=== PATIENT | female | born 1975 | race Caucasian/White ===

== ENCOUNTER 2017-11-28 06:45 | Inpatient (IN) | payer OTHER ==
[2017-11-28 07:19] LABS: ADD MAN DIFF? NO
[2017-11-28] MEDS: IV NORMAL SALINE 1000ML BAG 1,000 ML IV ×3 (07:29→20:40)
[2017-11-28] MEDS: ONDANSETRON PF 4 MG/2 ML VIAL. IV ×3 (07:30→18:18)
[2017-11-28 07:31] LABS: ANION GAP 11 (6-14); BLOOD UREA NITROGEN 24 mg/dL (7-20); BUN/CREATININE RATIO 27 (6-20); CALCIUM 8.5 mg/dL (8.5-10.1); CARBON DIOXIDE 24 mmol/L (21-32); CHLORIDE 108 mmol/L (98-107); CREATININE 0.9 mg/dL (0.6-1.0); GLUCOSE 130 mg/dL (70-99); POTASSIUM 3.8 mmol/L (3.5-5.1); SODIUM 143 mmol/L (136-145)
[2017-11-28] MEDS: fentaNYL PF VIAL 100 MCG/2 ML VIAL IV ×3 (07:34→11:15)
[2017-11-28 07:36] LABS: ALBUMIN 3.2 g/dL (3.4-5.0); ALBUMIN/GLOBULIN RATIO 0.9 (1.0-1.7); ALK PHOS 88 U/L (46-116); ALT (SGPT) 29 U/L (14-59); AST (SGOT) 18 U/L (15-37); LIPASE 120 U/L (73-393); TOTAL BILIRUBIN 0.4 mg/dL (0.2-1.0); TOTAL PROTEIN 6.6 g/dL (6.4-8.2)
[2017-11-28 07:47] LABS: BASO % 1 % (0-3); EOS # 0.1 x10^3/uL (0.0-0.7); EOS % 2 % (0-3); HEMATOCRIT 40.6 % (36.0-47.0); HEMOGLOBIN 13.8 g/dL (12.0-15.5); LYMPH # 2.7 x10^3/uL (1.0-4.8); LYMPH % 36 % (24-48); MEAN CORPUSCULAR HEMOGLOBIN 30 pg (25-35); MEAN CORPUSCULAR HGB CONC 34 g/dL (31-37); MEAN CORPUSCULAR VOLUME 89 fL (79-100); MONO # 0.7 x10^3/uL (0.0-1.1); MONO % 10 % (0-9); NEUT # 3.9 x10^3uL (1.8-7.7); NEUT % 52 % (31-73); PLATELET COUNT 340 x10^3/uL (140-400); RED BLOOD COUNT 4.58 x10^6/uL (3.50-5.40); RED CELL DISTRIBUTION WIDTH 13.3 % (11.5-14.5); WHITE BLOOD COUNT 7.5 x10^3/uL (4.0-11.0)
[2017-11-28 07:55] LABS: BILIRUBIN,URINE NEGATIVE (NEG); CLARITY,URINE CLOUDY; COLOR,URINE YELLOW; GLUCOSE,URINE NEGATIVE (NEG); NITRITE,URINE NEGATIVE (NEG); PH,URINE 6.5; PROTEIN,URINE 30 mg/dL (NEG-TRACE)
[2017-11-28 08:11] LABS: BACTERIA,URINE MANY /HPF (0-FEW); RBC,URINE 20-40 /HPF (0-2); WBC,URINE 0 /HPF (0-4)
[2017-11-28 08:12] LABS: SQUAMOUS EPITHELIAL CELL,UR MOD /LPF
[2017-11-28] MEDS ORDERED: MORPHINE SULFATE 2 MG/ML DISP.SYRIN. IV (08:45)
[2017-11-28] MEDS: MORPHINE SULFATE 4 MG/ML DISP.SYRIN. IV ×5 (08:59→18:18)
[2017-11-28] MEDS: KETOROLAC 30 MG/ML INJ. IV ×2 (09:03→20:55)
[2017-11-28] MEDS ORDERED: MORPHINE SULFATE 4 MG/ML DISP.SYRIN. IV (10:00)
[2017-11-28] MEDS ORDERED: ONDANSETRON PF 4 MG/2 ML VIAL. IV (10:00)
[2017-11-28] MEDS ORDERED: DEXTROSE 50% 25 GM / 50ML DISP.SYRIN. IV (14:15)
[2017-11-28] MEDS: PANTOPRAZOLE 40 MG TABLET.DR. PO (14:25)
[2017-11-28] MEDS: LORazepam 1 MG TABLET PO ×2 (19:36→20:52)
[2017-11-28] MEDS ORDERED: NON FORMULARY ITEM (Dextroamphetamine/Amphetamine (Adderall 20 Mg Tablet) 20 MG) PO (20:30)
[2017-11-28] MEDS: ZOLPIDEM 5 MG TABLET. PO (20:52)
[2017-11-28] MEDS ORDERED: DULoxetine HCL 30 MG CAPSULE.DR PO (22:30)
[2017-11-28] MEDS: DULoxetine HCL 30 MG CAPSULE.DR PO (22:40)
[2017-11-29] MEDS: MORPHINE SULFATE 4 MG/ML DISP.SYRIN. IV ×3 (01:34→19:14)
[2017-11-29] MEDS: ONDANSETRON PF 4 MG/2 ML VIAL. IV ×4 (01:35→23:41)
[2017-11-29] MEDS: LORazepam 1 MG TABLET PO ×4 (02:36→21:13)
[2017-11-29] MEDS: KETOROLAC 30 MG/ML INJ. IV ×4 (04:17→23:40)
[2017-11-29] MEDS: IV NORMAL SALINE 1000ML BAG 1,000 ML IV ×2 (05:16→21:15)
[2017-11-29 05:26] LABS: ADD MAN DIFF? NO
[2017-11-29 05:33] LABS: BASO % 1 % (0-3); EOS # 0.1 x10^3/uL (0.0-0.7); EOS % 2 % (0-3); HEMATOCRIT 36.9 % (36.0-47.0); HEMOGLOBIN 12.6 g/dL (12.0-15.5); LYMPH # 1.8 x10^3/uL (1.0-4.8); LYMPH % 40 % (24-48); MEAN CORPUSCULAR HEMOGLOBIN 31 pg (25-35); MEAN CORPUSCULAR HGB CONC 34 g/dL (31-37); MEAN CORPUSCULAR VOLUME 90 fL (79-100); MONO # 0.5 x10^3/uL (0.0-1.1); MONO % 12 % (0-9); NEUT # 2.1 x10^3uL (1.8-7.7); NEUT % 46 % (31-73); PLATELET COUNT 275 x10^3/uL (140-400); RED BLOOD COUNT 4.12 x10^6/uL (3.50-5.40); RED CELL DISTRIBUTION WIDTH 13.3 % (11.5-14.5); WHITE BLOOD COUNT 4.5 x10^3/uL (4.0-11.0)
[2017-11-29 06:02] LABS: ANION GAP 5 (6-14); BLOOD UREA NITROGEN 20 mg/dL (7-20); CALCIUM 8.1 mg/dL (8.5-10.1); CARBON DIOXIDE 26 mmol/L (21-32); CHLORIDE 109 mmol/L (98-107); GFR 61.1; GLUCOSE 129 mg/dL (70-99); POTASSIUM 4.5 mmol/L (3.5-5.1); SODIUM 140 mmol/L (136-145)
[2017-11-29] MEDS: PANTOPRAZOLE 40 MG TABLET.DR. PO (07:30)
[2017-11-29] MEDS: DULoxetine HCL 30 MG CAPSULE.DR PO ×2 (07:53→17:19)
[2017-11-29] MEDS: ESTRADIOL 1 MG TABLET. PO (07:53)
[2017-11-29] MEDS: OXYBUTYNIN CHLORIDE 5 MG TABLET PO ×2 (07:53→21:13)
[2017-11-29] MEDS: TOPIRAMATE 100 MG TABLET. PO (07:53)
[2017-11-29] MEDS: ZOLPIDEM 5 MG TABLET. PO (21:13)
[2017-11-30] MEDS: MORPHINE SULFATE 4 MG/ML DISP.SYRIN. IV ×3 (01:43→07:35)
[2017-11-30] MEDS: ONDANSETRON PF 4 MG/2 ML VIAL. IV ×2 (03:15→07:32)
[2017-11-30] MEDS: IV NORMAL SALINE 1000ML BAG 1,000 ML IV ×3 (03:16→20:02)
[2017-11-30] MEDS: KETOROLAC 30 MG/ML INJ. IV ×2 (06:01→18:24)
[2017-11-30] MEDS ORDERED: LIDOCAINE 2% JELLY 6ML IN APPLICATOR. ×2 (06:29→06:30)
[2017-11-30] MEDS ORDERED: IOHEXOL 300 MG/ML 100ML VIAL. (06:29)
[2017-11-30] MEDS ORDERED: fentaNYL PF VIAL 100 MCG/2 ML VIAL IV (07:00)
[2017-11-30] MEDS ORDERED: MORPHINE SULFATE 4 MG/ML DISP.SYRIN. IV (07:00)
[2017-11-30] MEDS ORDERED: ONDANSETRON PF 4 MG/2 ML VIAL. IV (07:00)
[2017-11-30] MEDS ORDERED: LIDOCAINE 1% PF 2 ML VIAL. ID (07:00)
[2017-11-30] MEDS ORDERED: PROPOFOL 20 ML IV (07:18)
[2017-11-30] MEDS ORDERED: LIDOCAINE 2% PF Vial for OR 5 ML VIAL. (07:18)
[2017-11-30] MEDS ORDERED: ONDANSETRON PF 4 MG/2 ML VIAL. (07:19)
[2017-11-30] MEDS ORDERED: DEXAMETHASONE SOD PHOS 20 MG/5 ML VIAL. (07:19)
[2017-11-30] MEDS ORDERED: SUCCINYLCHOLINE 200 MG/10 ML VIAL. (07:19)
[2017-11-30] MEDS ORDERED: fentaNYL PF VIAL 100 MCG/2 ML VIAL (07:21)
[2017-11-30] MEDS: PANTOPRAZOLE 40 MG TABLET.DR. PO (07:30)
[2017-11-30] MEDS: OXYBUTYNIN CHLORIDE 5 MG TABLET PO ×2 (07:53→20:01)
[2017-11-30] MEDS: ESTRADIOL 1 MG TABLET. PO (07:53)
[2017-11-30] MEDS: TOPIRAMATE 100 MG TABLET. PO (07:53)
[2017-11-30] MEDS ORDERED: MIDAZOLAM HCL/PF 2 MG/2 ML VIAL. (07:56)
[2017-11-30] MEDS ORDERED: ePHEDrine PF IN SALINE 50 MG/5 ML DISP.SYRIN IV (08:19)
[2017-11-30] MEDS: IV RINGERS,LACTATED 1000ML 1,000 ML IV (09:17)
[2017-11-30] MEDS: PROCHLORPERAZINE 10 MG/2 ML VIAL. IV (09:39)
[2017-11-30] MEDS: fentaNYL PF VIAL 100 MCG/2 ML VIAL IV ×2 (09:39→09:57)
[2017-11-30] MEDS: DULoxetine HCL 30 MG CAPSULE.DR PO (16:24)
[2017-11-30] MEDS: TAMSULOSIN 0.4 MG CAP.ER.24H. PO (16:24)
[2017-11-30] MEDS: LORazepam 1 MG TABLET PO ×2 (18:24→23:19)
[2017-11-30] MEDS: ZOLPIDEM 5 MG TABLET. PO (20:01)
[2017-11-30] MEDS: oxyCODONE/APAP 5/325 1 TAB TABLET PO ×2 (20:09→23:19)
[2017-12-01] MEDS: KETOROLAC 30 MG/ML INJ. IV (02:39)
[2017-12-01] MEDS: ONDANSETRON PF 4 MG/2 ML VIAL. IV (02:40)
[2017-12-01] MEDS: PANTOPRAZOLE 40 MG TABLET.DR. PO (05:52)
[2017-12-01] MEDS: MORPHINE SULFATE 4 MG/ML DISP.SYRIN. IV (05:52)
[2017-12-01] MEDS: LORazepam 1 MG TABLET PO (05:52)
[2017-12-01] MEDS: ESTRADIOL 1 MG TABLET. PO (08:27)
[2017-12-01] MEDS: DULoxetine HCL 30 MG CAPSULE.DR PO (08:27)
[2017-12-01] MEDS: TOPIRAMATE 100 MG TABLET. PO (08:27)
[2017-12-01] MEDS: OXYBUTYNIN CHLORIDE 5 MG TABLET PO (08:28)
[2017-12-01] MEDS: TAMSULOSIN 0.4 MG CAP.ER.24H. PO (08:28)
[2017-12-01] MEDS: oxyCODONE/APAP 5/325 1 TAB TABLET PO (08:46)
== END 2017-12-01 13:00 | disposition home or self-care (01) | DRG 669 ==
LOC: ER 06:45 → 4 NORTH 09:52
PROC: 0TC78ZZ Extirpation of Matter from Left Ureter, Via Natural or Artificial Opening Endoscopic (ICD-10-PCS; principal; 2017-11-30 08:00)
DX: N13.2 Hydronephrosis with renal and ureteral calculous obstruction (principal); Z68.41 Body mass index [BMI] 40.0-44.9, adult; N39.0 Urinary tract infection, site not specified; E66.9 Obesity, unspecified; F32.9 Major depressive disorder, single episode, unspecified; F41.9 Anxiety disorder, unspecified; I10 Essential (primary) hypertension; G43.909 Migraine, unspecified, not intractable, without status migrainosus; K21.9 Gastro-esophageal reflux disease without esophagitis; M19.019 Primary osteoarthritis, unspecified shoulder; R73.9 Hyperglycemia, unspecified; Z87.442 Personal history of urinary calculi; Z90.710 Acquired absence of both cervix and uterus; Z88.8 Allergy status to other drugs, medicaments and biological substances; Z82.49 Family history of ischemic heart disease and other diseases of the circulatory system
CPT/HCPCS: 36415; 74176; 76001; 80048; 80053; 81001; 83690; 85025; 87086; 96361; 96365; 96374; 96375; 96376; 99285; 99285-25; C1769; J0330; J0690; J0780; J1100; J1885; J2060; J2250; J2270; J2405; J2704; J3010; J7030; J7120; Q9967

== ENCOUNTER 2017-12-28 13:09 | Emergency (ER) | payer OTHER ==
[2017-12-28] MEDS: IV NORMAL SALINE 1000ML BAG 1,000 ML IV (13:54)
[2017-12-28] MEDS: TAMSULOSIN 0.4 MG CAP.ER.24H. PO (14:00)
[2017-12-28] MEDS: ONDANSETRON PF 4 MG/2 ML VIAL. IV ×2 (14:00→15:23)
[2017-12-28] MEDS: MORPHINE SULFATE 10 MG/ML VIAL. IV ×2 (14:02→15:25)
[2017-12-28 14:04] LABS: ADD MAN DIFF? NO
[2017-12-28 14:09] LABS: BASO % 1 % (0-3); EOS # 0.1 x10^3/uL (0.0-0.7); EOS % 1 % (0-3); HEMATOCRIT 41.9 % (36.0-47.0); HEMOGLOBIN 14.2 g/dL (12.0-15.5); LYMPH # 1.2 x10^3/uL (1.0-4.8); LYMPH % 31 % (24-48); MEAN CORPUSCULAR HEMOGLOBIN 30 pg (25-35); MEAN CORPUSCULAR HGB CONC 34 g/dL (31-37); MEAN CORPUSCULAR VOLUME 89 fL (79-100); MONO # 0.3 x10^3/uL (0.0-1.1); MONO % 9 % (0-9); NEUT # 2.3 x10^3uL (1.8-7.7); NEUT % 58 % (31-73); PLATELET COUNT 293 x10^3/uL (140-400); RED BLOOD COUNT 4.69 x10^6/uL (3.50-5.40); RED CELL DISTRIBUTION WIDTH 13.2 % (11.5-14.5)
[2017-12-28 14:16] LABS: ANION GAP 9 (6-14); BLOOD UREA NITROGEN 21 mg/dL (7-20); BUN/CREATININE RATIO 18 (6-20); CALCIUM 8.5 mg/dL (8.5-10.1); CARBON DIOXIDE 24 mmol/L (21-32); CHLORIDE 104 mmol/L (98-107); CREATININE 1.2 mg/dL (0.6-1.0); GFR 49.5; GLUCOSE 107 mg/dL (70-99); POTASSIUM 4.4 mmol/L (3.5-5.1); SODIUM 137 mmol/L (136-145)
[2017-12-28 14:22] LABS: ALBUMIN 3.4 g/dL (3.4-5.0); ALK PHOS 83 U/L (46-116); ALT (SGPT) 28 U/L (14-59); AST (SGOT) 14 U/L (15-37); TOTAL BILIRUBIN 0.3 mg/dL (0.2-1.0); TOTAL PROTEIN 6.7 g/dL (6.4-8.2)
[2017-12-28 14:47] LABS: BILIRUBIN,URINE NEGATIVE (NEG); CLARITY,URINE CLEAR; COLOR,URINE YELLOW; GLUCOSE,URINE NEGATIVE (NEG); NITRITE,URINE NEGATIVE (NEG); PROTEIN,URINE NEGATIVE (NEG-TRACE); UROBILINOGEN,URINE 0.2 mg/dL (0.2 mg/dL)
[2017-12-28 14:49] LABS: BACTERIA,URINE MODERATE /HPF (0-FEW); RBC,URINE 0 /HPF (0-2); SQUAMOUS EPITHELIAL CELL,UR MANY /LPF; WBC,URINE RARE /HPF (0-4)
== END 2017-12-28 16:16 | disposition home or self-care (01) ==
LOC: ER 13:09
DX: R10.32 Left lower quadrant pain (principal); R11.0 Nausea; I10 Essential (primary) hypertension; G43.909 Migraine, unspecified, not intractable, without status migrainosus; Z90.710 Acquired absence of both cervix and uterus; Z87.442 Personal history of urinary calculi; Z88.1 Allergy status to other antibiotic agents
CPT/HCPCS: 36415; 74176; 80053; 81001; 85025; 87086; 96374; 96375; 96376; 99285-25; J2270; J2405; J7030

== ENCOUNTER 2018-05-13 09:52 | Emergency (ER) | payer OTHER ==
[~2018-05-13] VITALS: Ht 165.1 cm; Wt 79.4 kg
[~2018-05-13 09:52] MED LIST: CEPH-264 PO; DEXT20TA2 PO; DICL50TA4 PO; DOCU-109 PO; DULO30CA2 PO; DULO60CA6 PO; ESTR2TAB PO; HYDR25TA PO; METF500T16 PO; METO50TA6 PO; ONDA4TAB10 SL; OXYB5TAB PO; OXYC1TAB7 PO; TIZA4TAB PO; TOPI100T8 PO; ZOLP10TA PO
[2018-05-13] MEDS ORDERED: MORPHINE SULFATE 4 MG/ML VIAL. IV ONE (10:15)
[2018-05-13] MEDS ORDERED: TAMSULOSIN 0.4 MG CAP.ER.24H. PO ONE (10:15)
[2018-05-13] MEDS ORDERED: ONDANSETRON PF 4 MG/2 ML VIAL. IV ONE (10:15)
--- NOTE | 2018-05-13 10:28 | PHYS DOC ---
Past Medical History Past Medical History: High Cholesterol, Kidney Stone, Migraines Additional Past Medical Histor: heart "goes to fast", MIGRAINES Past Surgical History: Hysterectomy, Other Additional Past Surgical Histo: KIDNEY STONES Alcohol Use: Occasionally Drug Use: None Adult General Chief Complaint Chief Complaint: FLANK PAIN HPI HPI Patient is a 43 year old female with history of kidney stones, high cholesterol , who presents today complaining of 10 out of 10 right flank pain radiating to the right side of the abdomen that began yesterday. Patient states this pain feels similar to the last time she had a kidney stone. Patient denies any vomiting but states she is nauseated. Denies any fever. PCP Dr. Ruiz Urologist Dr. Vela Review of Systems Review of Systems Constitutional: Denies fever or chills [] Eyes: Denies change in visual acuity, redness, or eye pain [] HENT: Denies nasal congestion or sore throat [] Respiratory: Denies cough or shortness of breath [] Cardiovascular: No additional information not addressed in HPI [] GI: Denies abdominal pain, nausea, vomiting, bloody stools or diarrhea [] : Reports right flank pain. Denies dysuria or hematuria [] Musculoskeletal: Denies back pain or joint pain [] Integument: Denies rash or skin lesions [] Neurologic: Denies headache, focal weakness or sensory changes [] All other systems were reviewed and found to be within normal limits, except as documented in this note. Current Medications Current Medications Current Medications Medications (Trade) Dose Ordered [facility] Start Time Stop Time Status Last Admin Dose Admin Ketorolac Tromethamine (Toradol 30mg Vial) 30 mg 1X ONCE 05/13/18 12:00 05/13/18 12:01 DC 05/13/18 12:09 30 MG Morphine Sulfate (Morphine Sulfate) 4 mg 1X ONCE 05/13/18 10:15 05/13/18 10:25 DC 05/13/18 10:15 4 MG Ondansetron HCl (Zofran) 4 mg 1X ONCE 05/13/18 10:15 05/13/18 10:25 DC 05/13/18 10:50 4 MG Tamsulosin HCl (Flomax) 0.4 mg 1X ONCE 05/13/18 10:15 05/13/18 10:25 DC 05/13/18 10:50 0.4 MG Allergies Allergies Allergies Coded Allergies Type Severity Reaction Last Updated Verified levofloxacin Allergy Severe 05/23/14 Yes Physical Exam Physical Exam Constitutional: Well developed, well nourished, no acute distress, non-toxic appearance. [] HENT: Normocephalic, atraumatic, bilateral external ears normal, oropharynx moist, no oral exudates, nose normal. [] Eyes: PERRLA, EOMI, conjunctiva normal, no discharge. [] Neck: Normal range of motion, no tenderness, supple, no stridor. [] Cardiovascular:Heart rate regular rhythm, no murmur [] Lungs & Thorax: Bilateral breath sounds clear to auscultation [] Abdomen: Bowel sounds normal, soft, no tenderness, no masses, no pulsatile masses. [] Skin: Warm, dry, no erythema, no rash. [] Back: No tenderness, no CVA tenderness. [] Extremities: No tenderness, no cyanosis, no clubbing, ROM intact, no edema. [] Neurologic: Alert and oriented X 3, normal motor function, normal sensory function, no focal deficits noted. [] Psychologic: Affect normal, judgement normal, mood normal. [] Current Patient Data Vital Signs Vital Signs Date Time Temp Pulse Resp B/P (MAP) Pulse Ox O2 Delivery O2 Flow Rate FiO2 05/13/18 13:00 75 112/64 (80) 97 Room Air 05/13/18 10:15 16 05/13/18 10:07 97.7 97.7 Lab Values Laboratory Tests Test 05/13/18 10:00 05/13/18 10:07 05/13/18 10:45 05/13/18 13:10 Urine Opiates Screen Neg (NEG) Urine Methadone Screen Neg (NEG) Urine Barbiturates Neg (NEG) Urine Phencyclidine Screen Neg (NEG) Urine Amphetamine/Methamphetamine Neg (NEG) Urine Benzodiazepines Screen Pos (NEG) Urine Cocaine Screen Neg (NEG) Urine Cannabinoids Screen Neg (NEG) Urine Ethyl Alcohol Neg (NEG) POC Urine HCG, Qualitative Hcg negative (Negative) White Blood Count 3.6 x10^3/uL (4.0-11.0) L Red Blood Count 4.90 x10^6/uL (3.50-5.40) Hemoglobin 14.7 g/dL (12.0-15.5) Hematocrit 42.8 % (36.0-47.0) Mean Corpuscular Volume 87 fL (79-100) Mean Corpuscular Hemoglobin 30 pg (25-35) Mean Corpuscular Hemoglobin Concent 34 g/dL (31-37) Red Cell Distribution Width 11.8 % (11.5-14.5) Platelet Count 334 x10^3/uL (140-400) Neutrophils (%) (Auto) 46 % (31-73) Lymphocytes (%) (Auto) 42 % (24-48) Monocytes (%) (Auto) 9 % (0-9) Eosinophils (%) (Auto) 2 % (0-3) Basophils (%) (Auto) 1 % (0-3) Neutrophils # (Auto) 1.7 x10^3uL (1.8-7.7) L Lymphocytes # (Auto) 1.5 x10^3/uL (1.0-4.8) Monocytes # (Auto) 0.3 x10^3/uL (0.0-1.1) Eosinophils # (Auto) 0.1 x10^3/uL (0.0-0.7) Basophils # (Auto) 0.0 x10^3/uL (0.0-0.2) Sodium Level 135 mmol/L (136-145) L Potassium Level 4.1 mmol/L (3.5-5.1) Chloride Level 102 mmol/L (98-107) Carbon Dioxide Level 19 mmol/L (21-32) L Anion Gap 14 (6-14) Blood Urea Nitrogen 19 mg/dL (7-20) Creatinine 1.0 mg/dL (0.6-1.0) Estimated GFR (Cockcroft-Gault) 60.8 BUN/Creatinine Ratio 19 (6-20) Glucose Level 112 mg/dL (70-99) H Calcium Level 8.3 mg/dL (8.5-10.1) L Total Bilirubin 0.2 mg/dL (0.2-1.0) Aspartate Amino Transferase (AST) 42 U/L (15-37) H Alanine Aminotransferase (ALT) 95 U/L (14-59) H Alkaline Phosphatase 86 U/L (46-116) Total Protein 6.6 g/dL (6.4-8.2) Albumin 3.1 g/dL (3.4-5.0) L Albumin/Globulin Ratio 0.9 (1.0-1.7) L Urine Collection Type Unknown Urine Color Yellow Urine Clarity Clear Urine pH 6.5 Urine Specific [place] 1.015 Urine Protein Negative mg/dL (NEG-TRACE) Urine Glucose (UA) Negative mg/dL (NEG) Urine Ketones (Stick) Negative mg/dL (NEG) Urine Blood Negative (NEG) Urine Nitrite Negative (NEG) Urine Bilirubin Negative (NEG) Urine Urobilinogen Dipstick 0.2 mg/dL (0.2 mg/dL) Urine Leukocyte Esterase Negative (NEG) Urine RBC Occ /HPF (0-2) Urine WBC 1-4 /HPF (0-4) Urine Squamous Epithelial Cells Mod /LPF Urine Bacteria Few /HPF (0-FEW) Urine Mucus Slight /LPF Laboratory Tests 05/13/18 10:45 Laboratory Tests 05/13/18 10:45 EKG EKG [] Radiology/Procedures Radiology/Procedures []PROCEDURE: CT ABDOMEN PELVIS WO CONTRAST CT Abdomen and Pelvis without contrast History: Right flank pain Technique: Noncontrast CT imaging was performed of the abdomen and pelvis. Multiplanar images are reviewed. Exposure: One or more of the following individualized dose reduction techniques were utilized for this examination: 1. Automated exposure control 2. Adjustment of the mA and/or kV according to patient size 3. Use of iterative reconstruction technique. Comparison: December 28, 2017 Findings: Previously there were more numerous left renal calculi, 3 remaining inferior left renal calculi with the largest about 3 mm. There is again small about 2 mm inferior right renal calculus. There is no hydronephrosis of either kidney. No ureteral calculus is identified. Accurate evaluation of abdominal visceral organs is limited without intravenous contrast. There is no obvious abnormality of the spleen, liver, or pancreas. There is no adrenal nodularity. Accurate evaluation of bowel is limited without oral contrast. There is retained stool throughout the colon. Normal appendix is visualized. There is no significant free air, free fluid, bowel dilatation. Impression: 1. There are persistent bilateral renal calculi although less numerous on the left compared with December 2017 exam, no hydronephrosis or ureteral calculus. 2. There is no CT evidence of acute appendicitis. There is retained stool throughout the colon. Electronically signed by: Trudi Arias MD (05/13/2018 10:40 AM) [id number] DICTATED and SIGNED BY: TRUDI ARIAS MD DATE: 05/13/18 1034 Course & Med Decision Making Course & Med Decision Making Pertinent Labs and Imaging studies reviewed. (See chart for details) This is a 43-year-old female patient presenting to the ED today with right flank pain. Has history of kidney stones. Also complaining of nausea with no vomiting. Urine analysis is negative for infection. Labs are negative for any acute findings. CT of the abdomen and pelvic to rule out kidney stone was noted for persistent bilateral renal calculi. She was also noted for constipation. Patient is in no distress. Will be discharged to home. Instructed to follow-up with her own PCP in the course of this week as well as urologist. Scott Disclaimer Scott Disclaimer This electronic medical record was generated, in whole or in part, using a voice recognition dictation system. Departure Departure Impression: Primary Impression: Kidney stone Additional Impression: Constipation Disposition: 01 HOME, SELF-CARE Condition: STABLE Referrals: SOFIYA DALAL (PCP) follow up next week Patient Instructions: Constipation, Adult, Kidney Stones, [id number] Additional Instructions: You were evaluated in the emergency room for flank pain, your urine has no infection you were noted to have chronic bilateral renal calculi/kidney stones. Continue following up with the urologist. Take [id number] pain relievers as needed. You also noted to be constipated. Consider taking magnesium citrate today and MiraLAX every day. Scripts Ondansetron (ZOFRAN ODT) 4 Mg Tab.rapdis 1 TAB SL Q8HRS, #15 TAB Prov: ALISON ROBLES APRN 05/13/18 Problem Qualifiers Additional Impression: Constipation Constipation type: unspecified constipation type Qualified Codes: K59.00 - Constipation, unspecified JENNYALISON MONSON [employer] May 13, 2018 10:28
[2018-05-13 10:33] LABS: BARBITURATES NEG (NEG); BENZODIAZEPINES POS (NEG); CANNABINOIDS NEG (NEG); COCAINE NEG (NEG); METHADONE NEG (NEG); OPIATES NEG (NEG); PHENCYCLIDINE NEG (NEG)
[2018-05-13 10:34] LABS: AMPHETAMINE/METHAMPHETAMINE NEG (NEG)
--- NOTE | 2018-05-13 10:43 | RAD ---
CT Abdomen and Pelvis without contrast History: Right flank pain Technique: Noncontrast CT imaging was performed of the abdomen and pelvis. Multiplanar images are reviewed. Exposure: One or more of the following individualized dose reduction techniques were utilized for this examination: 1. Automated exposure control 2. Adjustment of the mA and/or kV according to patient size 3. Use of iterative reconstruction technique. Comparison: December 28, 2017 Findings: Previously there were more numerous left renal calculi, 3 remaining inferior left renal calculi with the largest about 3 mm. There is again small about 2 mm inferior right renal calculus. There is no hydronephrosis of either kidney. No ureteral calculus is identified. Accurate evaluation of abdominal visceral organs is limited without intravenous contrast. There is no obvious abnormality of the spleen, liver, or pancreas. There is no adrenal nodularity. Accurate evaluation of bowel is limited without oral contrast. There is retained stool throughout the colon. Normal appendix is visualized. There is no significant free air, free fluid, bowel dilatation. Impression: 1. There are persistent bilateral renal calculi although less numerous on the left compared with December 2017 exam, no hydronephrosis or ureteral calculus. 2. There is no CT evidence of acute appendicitis. There is retained stool throughout the colon. Electronically signed by: Miguel Ángel Hanley MD (05/13/2018 10:40 AM) [facility]
[2018-05-13 11:04] LABS: CALCIUM 8.3 mg/dL (8.5-10.1); GFR 60.8; POTASSIUM 4.1 mmol/L (3.5-5.1)
[2018-05-13 11:12] LABS: ALBUMIN 3.1 g/dL (3.4-5.0); ALBUMIN/GLOBULIN RATIO 0.9 (1.0-1.7); TOTAL BILIRUBIN 0.2 mg/dL (0.2-1.0); TOTAL PROTEIN 6.6 g/dL (6.4-8.2)
[2018-05-13 11:15] LABS: BASO % 1 % (0-3); EOS # 0.1 x10^3/uL (0.0-0.7); EOS % 2 % (0-3); HEMATOCRIT 42.8 % (36.0-47.0); HEMOGLOBIN 14.7 g/dL (12.0-15.5); LYMPH # 1.5 x10^3/uL (1.0-4.8); LYMPH % 42 % (24-48); MEAN CORPUSCULAR HEMOGLOBIN 30 pg (25-35); MEAN CORPUSCULAR HGB CONC 34 g/dL (31-37); MEAN CORPUSCULAR VOLUME 87 fL (79-100); MONO # 0.3 x10^3/uL (0.0-1.1); MONO % 9 % (0-9); NEUT # 1.7 x10^3uL (1.8-7.7); NEUT % 46 % (31-73); PLATELET COUNT 334 x10^3/uL (140-400); RED CELL DISTRIBUTION WIDTH 11.8 % (11.5-14.5); WHITE BLOOD COUNT 3.6 x10^3/uL (4.0-11.0)
[2018-05-13] MEDS ORDERED: KETOROLAC 30 MG/ML VIAL. IV ONE (12:00)
[2018-05-13 13:43] LABS: BILIRUBIN,URINE NEGATIVE (NEG); CLARITY,URINE CLEAR; COLOR,URINE YELLOW; NITRITE,URINE NEGATIVE (NEG); PH,URINE 6.5; PROTEIN,URINE NEGATIVE (NEG-TRACE); UROBILINOGEN,URINE 0.2 mg/dL (0.2 mg/dL)
[2018-05-13 14:05] LABS: BACTERIA,URINE FEW /HPF (0-FEW); RBC,URINE OCC /HPF (0-2); SQUAMOUS EPITHELIAL CELL,UR MOD /LPF
[2018-05-13 14:10] VITALS: BP 134/66
[2018-05-13] MEDS ORDERED: ONDA4TAB10 SL (14:26)
[2018-05-13] MEDS ORDERED: IBUPROFEN 600 MG TABLET. PO ONE (14:45)
== END 2018-05-13 14:43 | disposition home or self-care (01) ==
LOC: ER 09:52
DX: N20.0 Calculus of kidney (principal); K59.00 Constipation, unspecified; E78.00 Pure hypercholesterolemia, unspecified; G43.909 Migraine, unspecified, not intractable, without status migrainosus; Z87.442 Personal history of urinary calculi; Z90.710 Acquired absence of both cervix and uterus; Z88.1 Allergy status to other antibiotic agents
CPT/HCPCS: 36415; 74176; 80053; 80307; 81001; 81025; 85025; 96374; 96375; 99285; J1885; J2270; J2405

== ENCOUNTER 2019-06-02 07:28 | Emergency (ER) | payer BC, OTHER ==
[~2019-06-02] VITALS: Ht 175.3 cm; Wt 99.8 kg
[~2019-06-02 07:28] MED LIST changes: -OXYB5TAB PO; +OXYB5TAB3 PO; -TIZA4TAB PO; +TIZA4TAB2 PO
[2019-06-02 07:30] VITALS: BP 125/73
[2019-06-02] MEDS ORDERED: IV NORMAL SALINE 1000ML BAG 1,000 ML IV SCH (07:44)
[2019-06-02] MEDS ORDERED: KETOROLAC 30 MG/ML VIAL. IV ONE (07:45)
[2019-06-02] MEDS ORDERED: ONDANSETRON PF 4 MG/2 ML VIAL. IV ONE (07:45)
--- NOTE | 2019-06-02 07:48 | PHYS DOC ---
Past Medical History Past Medical History: High Cholesterol, Kidney Stone, Migraines Additional Past Medical Histor: heart "goes to fast", MIGRAINES Past Surgical History: Hysterectomy, Other Additional Past Surgical Histo: KIDNEY STONES Alcohol Use: Occasionally Drug Use: None Adult General Chief Complaint Chief Complaint: FLANK PAIN HPI HPI Patient is a 44 year old with history of dyslipidemia, migraine headache, kidney stones who presents with complaint of flank pain. Patient coming of sudden onset of right flank pain that 5 AM as a constant sharp pain without radiation. Patient complaining of severe nausea without vomiting and states her urine looks dark. Patient states she did not drink enough liquids for the last few days. Patient denies vomiting, diarrhea and constipation, , fever and chills, chest pain and shortness of breath. Patient states she had the same problem with her previous episodes of kidney stones. Review of Systems Review of Systems Constitutional: Denies fever or chills [] Eyes: Denies change in visual acuity, redness, or eye pain [] HENT: Denies nasal congestion or sore throat [] Respiratory: Denies cough or shortness of breath [] Cardiovascular: No additional information not addressed in HPI [] GI: Denies abdominal pain, vomiting, bloody stools or diarrhea, reports nausea [] : Denies dysuria or hematuria [] Musculoskeletal: Denies back pain or joint pain [] Integument: Denies rash or skin lesions [] Neurologic: Denies headache, focal weakness or sensory changes [] Endocrine: Denies polyuria or polydipsia [] All other systems were reviewed and found to be within normal limits, except as documented in this note. Current Medications Current Medications Current Medications Medications (Trade) Dose Ordered Sig/Tony Start Time Stop Time Status Last Admin Dose Admin Fentanyl Citrate (Fentanyl 2ml Vial) 50 mcg 1X ONCE 06/02/19 09:00 06/02/19 09:04 DC 06/02/19 09:15 50 MCG Ketorolac Tromethamine (Toradol 30mg Vial) 30 mg 1X ONCE 06/02/19 07:45 06/02/19 07:48 DC 06/02/19 07:59 30 MG Ondansetron HCl (Zofran) 4 mg 1X ONCE 06/02/19 07:45 06/02/19 07:48 DC 06/02/19 07:59 4 MG Sodium Chloride 1,000 ml @ 1,000 mls/hr Q1H 12/4/19 07:44 06/02/19 08:43 DC 06/02/19 07:59 1,000 MLS/HR Allergies Allergies Allergies Coded Allergies Type Severity Reaction Last Updated Verified levofloxacin Allergy Severe 05/23/14 Yes Physical Exam Physical Exam Constitutional: Well developed, well nourished, moderate distress, non-toxic appearance. [] HENT: Normocephalic, atraumatic. Eyes: PERRLA, EOMI, conjunctiva normal, no discharge. [] Neck: Normal range of motion, no tenderness, supple, no stridor. [] Cardiovascular:Heart rate regular rhythm, no murmur [] Lungs & Thorax: Bilateral breath sounds clear to auscultation [] Abdomen: Bowel sounds normal, soft, no tenderness, no masses, no pulsatile masses. [] Skin: Warm, dry, no erythema, no rash. [] Back: No tenderness, no CVA tenderness. [] Extremities: No tenderness, no cyanosis, no clubbing, ROM intact, no edema. [] Neurologic: Alert and oriented X 3, no focal deficits noted. [] Psychologic: Affect normal, judgement normal, mood normal. [] Current Patient Data Vital Signs Vital Signs Date Time Temp Pulse Resp B/P (MAP) Pulse Ox O2 Delivery O2 Flow Rate FiO2 06/02/19 09:15 18 97 Room Air 06/02/19 07:30 98.4 75 125/73 (90) 98.4 Lab Values Laboratory Tests Test 06/02/19 07:30 06/02/19 08:00 Urine Collection Type Unknown Urine Color Yellow Urine Clarity Cloudy Urine pH 7.0 Urine Specific [place] 1.025 Urine Protein Negative mg/dL (NEG-TRACE) Urine Glucose (UA) Negative mg/dL (NEG) Urine Ketones (Stick) Negative mg/dL (NEG) Urine Blood Negative (NEG) Urine Nitrite Negative (NEG) Urine Bilirubin Negative (NEG) Urine Urobilinogen Dipstick 1.0 mg/dL (0.2 mg/dL) Urine Leukocyte Esterase Moderate (NEG) Urine RBC 0 /HPF (0-2) Urine WBC 5-10 /HPF (0-4) Urine Squamous Epithelial Cells Mod /LPF Urine Bacteria Moderate /HPF (0-FEW) Urine Mucus Mod /LPF White Blood Count 3.6 x10^3/uL (4.0-11.0) L Red Blood Count 4.63 x10^6/uL (3.50-5.40) Hemoglobin 13.6 g/dL (12.0-15.5) Hematocrit 40.4 % (36.0-47.0) Mean Corpuscular Volume 87 fL (79-100) Mean Corpuscular Hemoglobin 29 pg (25-35) Mean Corpuscular Hemoglobin Concent 34 g/dL (31-37) Red Cell Distribution Width 12.1 % (11.5-14.5) Platelet Count 295 x10^3/uL (140-400) Neutrophils (%) (Auto) 55 % (31-73) Lymphocytes (%) (Auto) 33 % (24-48) Monocytes (%) (Auto) 9 % (0-9) Eosinophils (%) (Auto) 2 % (0-3) Basophils (%) (Auto) 1 % (0-3) Neutrophils # (Auto) 2.0 x10^3/uL (1.8-7.7) Lymphocytes # (Auto) 1.2 x10^3/uL (1.0-4.8) Monocytes # (Auto) 0.3 x10^3/uL (0.0-1.1) Eosinophils # (Auto) 0.1 x10^3/uL (0.0-0.7) Basophils # (Auto) 0.0 x10^3/uL (0.0-0.2) Sodium Level 141 mmol/L (136-145) Potassium Level 4.0 mmol/L (3.5-5.1) Chloride Level 104 mmol/L (98-107) Carbon Dioxide Level 29 mmol/L (21-32) Anion Gap 8 (6-14) Blood Urea Nitrogen 26 mg/dL (7-20) H Creatinine 0.9 mg/dL (0.6-1.0) Estimated GFR (Cockcroft-Gault) 68.3 BUN/Creatinine Ratio 29 (6-20) H Glucose Level 110 mg/dL (70-99) H Calcium Level 8.7 mg/dL (8.5-10.1) Total Bilirubin 0.6 mg/dL (0.2-1.0) Aspartate Amino Transferase (AST) 11 U/L (15-37) L Alanine Aminotransferase (ALT) 16 U/L (14-59) Alkaline Phosphatase 93 U/L (46-116) Total Protein 6.3 g/dL (6.4-8.2) L Albumin 3.2 g/dL (3.4-5.0) L Albumin/Globulin Ratio 1.0 (1.0-1.7) Laboratory Tests 06/02/19 08:00 Laboratory Tests 06/02/19 08:00 EKG EKG [] Radiology/Procedures Radiology/Procedures [][facility] [address] [place] [address] IMAGING REPORT Signed PATIENT: KELLI CHRISTIANSON ACCOUNT: [id number] : 1975 LOCATION: ER AGE: 44 SEX: F EXAM STATUS: REG ER ORD. PHYSICIAN: AVANI DE LA GARZA MD REASON: right flank pain PROCEDURE: CT ABDOMEN PELVIS WO CONTRAST CT abdomen pelvis without contrast dated 06/02/2019. Comparison made to 05/13/2018. Clinical indication: Right flank pain. TECHNIQUE: Contiguous axial imaging the pelvis performed without the administration of IV or oral contrast. One or more of the following individualized dose reduction techniques were utilized for this examination: 1. Automated exposure control 2. Adjustment of the mA and/or kV according to patient size 3. Use of iterative reconstruction technique. FINDINGS: Limited images of lung bases show minimal patchy left basilar opacity, likely atelectasis. Heart size within normal limits. No pleural or pericardial effusion. Solid abdominal viscera not well evaluated in the absence of contrast material. Rounded area of low density in the left lobe liver near the falciform ligament on image 49 measures about 2.8 cm in size, unchanged from prior exam. Liver is otherwise homogeneous. No biliary ductal dilatation. Gallbladder unremarkable. Spleen is normal in size. Pancreas, adrenal glands unremarkable. There are small calcific stones along the calyceal margins of each kidney measuring about 4 mm in size or less. These have increased in size and number from prior study. No calculus identified along the course of either ureter. No hydronephrosis. Unopacified GI tract normal in caliber and contour. No focal bowel wall thickening. No inflammatory stranding in the mesentery. No ascites or lymphadenopathy. Abdominal aorta normal in caliber. Appendix normal in caliber. Images of pelvis show nondistended urinary bladder. Uterus surgically absent. No free fluid or pelvic lymphadenopathy. Bone windows show no acute findings. Mild multilevel spondylosis. IMPRESSION: 1. Bilateral nephrolithiasis, nonobstructive. 2. Indeterminate low-density lesion within left lobe liver, unchanged from prior study. 3. Status post hysterectomy. 4. Normal appendix. Electronically signed by: Cam Padron MD (06/02/2019 9:28 AM) [id number] DICTATED and SIGNED BY: CAM PADRON MD DATE: 06/02/1928 Course & Med Decision Making Course & Med Decision Making Pertinent Labs and Imaging studies reviewed. (See chart for details) Evaluation of patient in ER showed 44-year-old female patient with history of kidney stone and so onset of right flank pain since this morning with nausea. Patient treated with IV fluid, Zofran, Toradol and fentanyl with improvement of her pain. UA showed infection without hematuria. Labs showed increase of urine. CT of abdomen and pelvis showed bilateral nephrolithiasis without ureterol ithiasis. Patient was advised to increase fluid intake. Prescription for Naprosyn and ciprofloxacin was given. Dragon Disclaimer Dragon Disclaimer This electronic medical record was generated, in whole or in part, using a voice recognition dictation system. Departure Departure Impression: Primary Impression: UTI (lower urinary tract infection) Additional Impressions: Right flank pain Nephrolithiasis Disposition: HOME, SELF-CARE (at 0943) Condition: IMPROVED Referrals: SOFIYA DALAL (PCP) Patient Instructions: Dehydration, Adult, Diet for Kidney Stones, Flank Pain, U rinary Tract Infection Additional Instructions: Drink plenty of liquids Follow-up with your primary care physician in 3-5 days Return to ER if not getting better Scripts Naproxen (NAPROSYN) 500 Mg Tablet 1 TAB PO BID for pain, #20 TAB Prov: AVANI DE LA GARZA MD 06/02/19 Ciprofloxacin Hcl (CIPRO) 250 Mg Tablet 1 TAB PO BID for infection, #14 TAB Prov: AVANI DE LA GARZA MD 06/02/19 Problem Qualifiers AVANI DE LA GARZA MD Jun 02, 2019 07:48
[2019-06-02 08:00] LABS: BILIRUBIN,URINE NEGATIVE (NEG); CLARITY,URINE CLOUDY; COLOR,URINE YELLOW; NITRITE,URINE NEGATIVE (NEG); PROTEIN,URINE NEGATIVE (NEG-TRACE)
[2019-06-02 08:17] LABS: SQUAMOUS EPITHELIAL CELL,UR MOD /LPF
[2019-06-02 08:18] LABS: BACTERIA,URINE MODERATE /HPF (0-FEW); RBC,URINE 0 /HPF (0-2)
[2019-06-02 08:25] LABS: BASO % 1 % (0-3); CALCIUM 8.7 mg/dL (8.5-10.1); CREATININE 0.9 mg/dL (0.6-1.0); EOS # 0.1 x10^3/uL (0.0-0.7); EOS % 2 % (0-3); GFR 68.3; HEMATOCRIT 40.4 % (36.0-47.0); HEMOGLOBIN 13.6 g/dL (12.0-15.5); LYMPH # 1.2 x10^3/uL (1.0-4.8); LYMPH % 33 % (24-48); MEAN CORPUSCULAR HEMOGLOBIN 29 pg (25-35); MEAN CORPUSCULAR HGB CONC 34 g/dL (31-37); MEAN CORPUSCULAR VOLUME 87 fL (79-100); MONO # 0.3 x10^3/uL (0.0-1.1); MONO % 9 % (0-9); NEUT % 55 % (31-73); PLATELET COUNT 295 x10^3/uL (140-400); RED BLOOD COUNT 4.63 x10^6/uL (3.50-5.40); RED CELL DISTRIBUTION WIDTH 12.1 % (11.5-14.5); WHITE BLOOD COUNT 3.6 x10^3/uL (4.0-11.0)
[2019-06-02 08:30] LABS: ALBUMIN 3.2 g/dL (3.4-5.0); TOTAL BILIRUBIN 0.6 mg/dL (0.2-1.0); TOTAL PROTEIN 6.3 g/dL (6.4-8.2)
[2019-06-02] MEDS ORDERED: fentaNYL PF VIAL 100 MCG/2 ML VIAL IVP ONE (09:00)
--- NOTE | 2019-06-02 09:31 | RAD ---
CT abdomen pelvis without contrast dated 06/02/2019. Comparison made to 05/13/2018. Clinical indication: Right flank pain. TECHNIQUE: Contiguous axial imaging the pelvis performed without the administration of IV or oral contrast. One or more of the following individualized dose reduction techniques were utilized for this examination: 1. Automated exposure control 2. Adjustment of the mA and/or kV according to patient size 3. Use of iterative reconstruction technique. FINDINGS: Limited images of lung bases show minimal patchy left basilar opacity, likely atelectasis. Heart size within normal limits. No pleural or pericardial effusion. Solid abdominal viscera not well evaluated in the absence of contrast material. Rounded area of low density in the left lobe liver near the falciform ligament on image 49 measures about 2.8 cm in size, unchanged from prior exam. Liver is otherwise homogeneous. No biliary ductal dilatation. Gallbladder unremarkable. Spleen is normal in size. Pancreas, adrenal glands unremarkable. There are small calcific stones along the calyceal margins of each kidney measuring about 4 mm in size or less. These have increased in size and number from prior study. No calculus identified along the course of either ureter. No hydronephrosis. Unopacified GI tract normal in caliber and contour. No focal bowel wall thickening. No inflammatory stranding in the mesentery. No ascites or lymphadenopathy. Abdominal aorta normal in caliber. Appendix normal in caliber. Images of pelvis show nondistended urinary bladder. Uterus surgically absent. No free fluid or pelvic lymphadenopathy. Bone windows show no acute findings. Mild multilevel spondylosis. IMPRESSION: 1. Bilateral nephrolithiasis, nonobstructive. 2. Indeterminate low-density lesion within left lobe liver, unchanged from prior study. 3. Status post hysterectomy. 4. Normal appendix. Electronically signed by: Cam Padron MD (06/02/2019 9:28 AM) [id number]
[2019-06-02] MEDS ORDERED: CIPR250T30 PO (09:46)
[2019-06-02] MEDS ORDERED: NAPR-683 PO (09:46)
== END 2019-06-02 10:00 | disposition home or self-care (01) ==
LOC: ER 07:28
DX: N39.0 Urinary tract infection, site not specified (principal); R10.9 Unspecified abdominal pain; N20.0 Calculus of kidney; Z87.442 Personal history of urinary calculi; E78.00 Pure hypercholesterolemia, unspecified; G43.909 Migraine, unspecified, not intractable, without status migrainosus; Z90.710 Acquired absence of both cervix and uterus; Z88.1 Allergy status to other antibiotic agents
CPT/HCPCS: 36415; 74176; 80053; 81001; 85025; 87086; 96374; 96375; 99285; J1885; J2405; J3010; J7030

== ENCOUNTER 2020-01-17 14:10 | Emergency (ER) | payer BC, OTHER ==
[~2020-01-17] VITALS: Ht 175.3 cm; Wt 100.0 kg
[~2020-01-17 14:10] MED LIST changes: +CIPR250T30 PO; +NAPR-683 PO; +OXYB-36 PO; -OXYB5TAB3 PO
[2020-01-17] MEDS ORDERED: IV NORMAL SALINE 1000ML BAG 1,000 ML IV ONE (14:30)
--- NOTE | 2020-01-17 14:31 | PHYS DOC ---
Past Medical History Past Medical History: High Cholesterol, Kidney Stone, Migraines, Other Additional Past Medical Histor: heart "goes too fast", MIGRAINES Past Surgical History: Hysterectomy, Other Additional Past Surgical Histo: KIDNEY STONES, gastric sleeve Smoking Status: Never Smoker Alcohol Use: Occasionally Drug Use: None General Adult EDM: Chief Complaint: FEVER HPI: HPI: Patient is a 44 year old female who presents to the emergency department with complaints of a headache, body aches, sore throat, and chills for the last 4 days. Patient reports that the symptoms started after she had returned home from [place]. She denies any known exposure to COVID-19. Patient denies any shortness of breath, fever, chest pain, cough, diarrhea, abdominal pain, dysuria, hematuria, increased urinary frequency, or weakness. She states she feels like her entire back is on fire. She also reports one episode of nausea and vomiting today. She denies any headache or dizziness. She currently rates her overall pain a 8 out of 10 on the pain scale, she denies any alleviating or exacerbating factors. Review of Systems: Review of Systems: Constitutional: Reports fever and chills Eyes: Denies change in visual acuity. [] HENT: Denies nasal congestion; see HPI Respiratory: Denies cough or shortness of breath. [] Cardiovascular: Denies chest pain or edema. [] GI: See HPI : Denies dysuria. [] Musculoskeletal: See HPI Integument: Denies rash. [] Neurologic: Denies headache, focal weakness or sensory changes. [] Psychiatric: Denies depression or anxiety. [] Heart Score: Risk Factors: Risk Factors: DM, Current or recent (<one month) smoker, HTN, HLP, family history of CAD, obesity. Risk Scores: Score 0 - 3: 2.5% MACE over next 6 weeks - Discharge Home Score 4 - 6: 20.3% MACE over next 6 weeks - Admit for Clinical Observation Score 7 - 10: 72.7% MACE over next 6 weeks - Early Invasive Strategies Allergies: Allergies: Allergies Coded Allergies Type Severity Reaction Last Updated Verified levofloxacin Allergy Severe 05/23/14 Yes Physical Exam: PE: Constitutional: Well developed, well nourished, no acute distress, ill appearance HENT: Normocephalic, atraumatic, bilateral external ears normal, oropharynx dry, nose normal. [] Eyes: PERRLA, EOMI, conjunctiva normal, no discharge. [] Neck: Normal range of motion, no tenderness, supple, no stridor. [] Cardiovascular:Heart rate regular rhythm, no murmur [] Lungs & Thorax: Bilateral breath sounds clear to auscultation, Respirations even and unlabored, no retractions, no respiratory distress [] Abdomen: soft, no tenderness Skin: Warm, dry, no erythema, no rash. [] Back: No bony tenderness Extremities: No cyanosis, no clubbing, ROM intact, no edema. [] Neurologic: Alert and oriented X 3, no focal deficits noted. [] Psychologic: Affect normal, judgement normal, mood normal. [] EKG: EKG: [] Radiology/Procedures: Radiology/Procedures: PROCEDURE: CHEST AP ONLY INDICATION: Reason: SOA, PUI / Spl. Instructions: / History: COMPARISON: December 2016 FINDINGS: Single view of chest obtained. No focal airspace consolidation. Cardiac silhouette is upper limits of normal. No evidence of pulmonary edema. IMPRESSION: * No definite focal airspace consolidation. [] Course & Med Decision Making: Course & Med Decision Making Pertinent Labs and Imaging studies reviewed. (See chart for details) Patient is a 44-year-old female who presented to the emergency department with complaints of fever, chills, body aches for 4 days. CBC was unremarkable; CMP was also unremarkable, patient's ferritin was 259, CRP is 202.3, procalcitonin is 0.19, likely due to COVID-19 infection, COVID swab is pending; UA is concerning for large leuk esterase with too many to count white blood cells and many bacteria. The patient was given a liter of normal saline, 4 mg of Zofran, and a gram of Rocephin in the emergency department. She was also given 800 mg of ibuprofen. Prescription was written for Keflex. The patient was given quarantine instructions and advised of the likely diagnosis of COVID-19. She was instru cted to follow quarantine instructions, alternate Tylenol and ibuprofen as needed for pain, increase clear fluids, and advised to follow-up with her primary care doctor if symptoms persist, return to the ER symptoms worsen. Patient verbalized an understanding of home care, medications, follow-up, and return to ED instructions and was in agreement with the plan of care. COVID-19 CRITERIA: The patient was evaluated during the global COVID-19 pandemic, and that diagnosis was suspected/considered upon their initial presentation. Their evaluation, treatment and testing was consistent with current guidelines for patients who present with complaints or symptoms that may be related to COVID-19. [] Dragon Disclaimer: Dragon Disclaimer: This electronic medical record was generated, in whole or in part, using a voice recognition dictation system. Departure Departure Impression: Primary Impression: UTI (lower urinary tract infection) Additional Impression: Person under investigation for COVID-19 Disposition: 01 HOME, SELF-CARE Condition: STABLE Referrals: SOFIYA DALAL (PCP) Patient Instructions: Urinary Tract Infection, [id number] Additional Instructions: Fill prescription(s) and use as directed. Avoid bladder irritants such as caffeine, carbonation, and spicy foods. Increase clear fluids. Follow the quarantine instructions provided. Follow-up with your primary care doctor if symptoms persist, return to the ER if symptoms worsen. You have been tested for or diagnosed with COVID-19. It is an infection caused by a new type of coronavirus. COVID-19 will cause cold-like or mild flu symptoms in most. It can cause more severe symptoms like problems breathing in some. There is no treatment for COVID-19. The body will clear the infection over time. Self-care will help to ease discomfort. Steps to Take: Self-Care Rest as needed. Healthy habits may help you feel better. Steps include: Choose healthy foods including fruits and vegetables. Drink water throughout the day. Get plenty of sleep each night. If you smoke, try to quit. It may ease breathing. Avoid alcohol. Keep Others Healthy The virus can spread to others. Droplets are released every time you sneeze or cough. The droplets can get into the mouth, nose, or eyes of people near you and lead to infection. To lower the chances of spreading COVID-19 to others: Stay at home until your doctor has said it is safe to leave. If you tested positive this will mean staying isolated until both of the following are true: At least 7 days have passed since the start of illness. You are free of fever for at least 72 hours without the use of medicine. During this time: - Avoid public areas, events, or transportation. Do not return to work or school until your doctor has said it is safe to do so. - Call ahead if you need to go to a medical center. Let them know you may have COVID-19. It will help them guide you where to go. They may also ask you to wear a facemask when you come to the office. - If you call for emergency medical services, let them know you may have COVID- 19. While at home: - Try to avoid close contact with others. Stay about 6 feet away. - If possible, spend most of your time in a separate room from others. - Use a face mask if you will be in close contact with others such as sharing a room or vehicle. - Have someone wipe down common surfaces in the home. Use household shift superintendent every day on areas like doorknobs, counters, or sinks. - Cough or sneeze into a tissue. Throw the tissue away right after use. If a t issue is not available, cough or sneeze into your elbow. - Wash your hands often. Wash them after sneezing or coughing. Use soap and water and wash for at least 20 seconds. Alcohol based hand fish cleaner machine tender can be used if soap and water is not available. - Do not prepare food for others. Avoid sharing personal items like forks, spoons, or toothbrushes. - Avoid close contact with pets while you are sick. There is no evidence of the virus passing to pets. This is a safety step until more is known about this virus. Isolation can be frustrating. Social interaction can help. Keep in touch with friends and family through phone and tech options. You can still interact with others in your home, just keep a safe distance of about 6 feet. Follow-up: Your doctors office will check in with you to see if there are any changes in your health. You may be asked to keep track of symptoms to share with them. They will also let you know when you are clear to be in public again. Problems to Look Out For: Contact your doctor if your recovery is not going as you expect. Get emergency care if you have problems such as: - Trouble breathing - Nonstop chest pain or pressure - Changes in awareness, confusion, or problems waking - Lips or face have bluish color - Worsening of symptoms If you think you have an emergency, call for emergency medical services right away. As taken [place] [facility] [facility] Cephalexin (KEFLEX) 500 Mg Capsule 500 MG PO QID for 7 Days, #28 CAP 0 Refills Prov: AYANA RODRIGUEZ APRN 01/17/20 Justicifation of Admission Dx: Justifications for Admission: Justification of Admission Dx: N/A COVID-19 Assessment: COVID-19 Patient Risks: Age 65 or older: No Sign of co-morbidity: No Exp to person + for COVID: No Exp to PUI: No Travel from affected area: No Lower respiratory symptoms: Yes Fever: No Other: No PPE Use: Full PPE with N95 mask or PAPR: Yes (N95) AYANA RODRIGUEZ APRN Jan 17, 2020 14:31
[2020-01-17 15:07] LABS: BASO % 0 % (0-3); EOS % 0 % (0-3); HEMOGLOBIN 13.2 g/dL (12.0-15.5); LYMPH # 1.7 x10^3/uL (1.0-4.8); LYMPH % 17 % (24-48); MEAN CORPUSCULAR HEMOGLOBIN 30 pg (25-35); MEAN CORPUSCULAR HGB CONC 35 g/dL (31-37); MEAN CORPUSCULAR VOLUME 88 fL (79-100); MONO # 1.3 x10^3/uL (0.0-1.1); MONO % 13 % (0-9); NEUT # 6.9 x10^3/uL (1.8-7.7); NEUT % 69 % (31-73); PLATELET COUNT 269 x10^3/uL (140-400); RED BLOOD COUNT 4.34 x10^6/uL (3.50-5.40); WHITE BLOOD COUNT 9.9 x10^3/uL (4.0-11.0)
[2020-01-17 15:13] LABS: BILIRUBIN,URINE NEGATIVE (NEG); CLARITY,URINE CLEAR; COLOR,URINE YELLOW; NITRITE,URINE NEGATIVE (NEG); PROTEIN,URINE NEGATIVE (NEG-TRACE)
[2020-01-17] MEDS ORDERED: ONDANSETRON PF 4 MG/2 ML VIAL. IV ONE (15:15)
[2020-01-17 15:23] LABS: CALCIUM 8.4 mg/dL (8.5-10.1); CREATININE 1.1 mg/dL (0.6-1.0); GFR 54.2; POTASSIUM 3.9 mmol/L (3.5-5.1)
[2020-01-17 15:24] LABS: BACTERIA,URINE MANY /HPF (0-FEW); SQUAMOUS EPITHELIAL CELL,UR OCC /LPF; WBC,URINE TNTC /HPF (0-4)
[2020-01-17 15:27] LABS: ALBUMIN 2.5 g/dL (3.4-5.0); ALBUMIN/GLOBULIN RATIO 0.6 (1.0-1.7); TOTAL BILIRUBIN 0.4 mg/dL (0.2-1.0); TOTAL PROTEIN 6.8 g/dL (6.4-8.2)
--- NOTE | 2020-01-17 15:54 | RAD ---
INDICATION: Reason: SOA, PUI / Spl. Instructions: / History: COMPARISON: December 2016 FINDINGS: Single view of chest obtained. No focal airspace consolidation. Cardiac silhouette is upper limits of normal. No evidence of pulmonary edema. IMPRESSION: * No definite focal airspace consolidation. Electronically signed by: Konstantin Mccarthy MD (01/17/2020 3:51 PM) [id number]
[2020-01-17] MEDS ORDERED: IBUPROFEN 400 MG TABLET. PO ONE (16:15)
[2020-01-17] MEDS ORDERED: cefTRIAXone IV Push 1 GM VIAL. IVP ONE (16:15)
[2020-01-17 16:29] VITALS: BP 117/67
[2020-01-17] MEDS ORDERED: CEPH-264 PO (16:46)
[2020-01-17 17:10] LABS: C-REACTIVE PROTEIN 202.3 mg/L (0-3.3)
--- NOTE | 2020-01-18 18:22 | NUR ---
IP:Notified patient of negative COVID results. All questions answered. Pt verbalized understanding.
== END 2020-01-17 16:51 | disposition home or self-care (01) ==
LOC: ER 14:10
DX: N39.0 Urinary tract infection, site not specified (principal); Z20.828 Contact with and (suspected) exposure to other viral communicable diseases; R11.2 Nausea with vomiting, unspecified; G43.909 Migraine, unspecified, not intractable, without status migrainosus; E78.00 Pure hypercholesterolemia, unspecified; Z87.442 Personal history of urinary calculi; Z88.1 Allergy status to other antibiotic agents
CPT/HCPCS: 36415; 71045; 80053; 81001; 82728; 84145; 85025; 86140; 87086; 96361; 96374; 96375; 99285; J0696; J2405; J7030; U0003

== ENCOUNTER 2020-01-24 16:24 | Emergency (ER) | payer BC, OTHER ==
[~2020-01-24] VITALS: Ht 175.3 cm; Wt 100.0 kg
[2020-01-24 16:37] VITALS: BP 131/80
[2020-01-24] MEDS ORDERED: NITR100C62 PO (19:01)
[2020-01-24] MEDS ORDERED: PHEN100T82 PO (19:01)
--- NOTE | 2020-01-24 19:02 | PHYS DOC ---
Past Medical History Past Medical History: High Cholesterol, Kidney Stone, Migraines, Other Additional Past Medical Histor: heart "goes too fast", MIGRAINES Past Surgical History: Hysterectomy, Other Additional Past Surgical Histo: KIDNEY STONES, gastric sleeve Smoking Status: Never Smoker Alcohol Use: Occasionally Drug Use: None General Adult EDM: Chief Complaint: PAIN ON URINATION HPI: HPI: Patient is a 44 year old female who presents with concerns that she received a phone call stating her urinary tract infection was not covered by the antibiotic that she is on currently. Patient was seen here 3 days ago and started on Macrobid for a simple cystitis. Patient states that the symptoms have resolved only some but still has several days left on her by antibiotic regimen. Patient denies any other concerns and has no new complaints since her previous visit. Patient does state that she has not had any exposure to the COVID-19 virus, and is not interested in having a COVID-19 test. Review of Systems: Review of Systems: Constitutional: Denies fever or chills. Eyes: Denies change in visual acuity. HENT: Denies nasal congestion or sore throat. Respiratory: Denies cough or shortness of breath. Cardiovascular: Denies chest pain or edema. GI: Denies abdominal pain, nausea, vomiting, bloody stools or diarrhea. : Continual UTI symptoms. Musculoskeletal: Denies back pain or joint pain. Integument: Denies rash. Neurologic: Denies headache, focal weakness or sensory changes. Lymphatic: Denies swollen glands. Psychiatric: Denies depression or anxiety. Heart Score: Risk Factors: Risk Factors: DM, Current or recent (<one month) smoker, HTN, HLP, family history of CAD, obesity. Risk Scores: Score 0 - 3: 2.5% MACE over next 6 weeks - Discharge Home Score 4 - 6: 20.3% MACE over next 6 weeks - Admit for Clinical Observation Score 7 - 10: 72.7% MACE over next 6 weeks - Early Invasive Strategies Allergies: Allergies: Allergies Coded Allergies Type Severity Reaction Last Updated Verified levofloxacin Allergy Severe 05/23/14 Yes I S O L A T I O N *CONTACT* Allergy Unknown 01/21/20 Yes Physical Exam: PE: Constitutional: Well developed, well nourished, no acute distress, non-toxic appearance. HENT: Normocephalic, atraumatic, bilateral external ears normal, oropharynx moist, no oral exudates, nose normal. Eyes: PERRLA, EOMI, conjunctiva normal, no discharge. Pupils 4 mm. Neck: Normal range of motion, no tenderness, supple, no stridor. Cardiovascular:Heart rate regular rhythm, no murmur heart sounds S1-S2, no abnormalities were auscultation. Lungs & Thorax: Bilateral breath sounds clear to auscultation all lung barillas Abdomen: Bowel sounds normal all 4 quadrants, soft, no tenderness, no masses, no pulsatile masses. Skin: Warm, dry, no erythema, no rash. Back: No tenderness, no CVA tenderness. Extremities: No tenderness, no cyanosis, no clubbing, ROM intact, no edema. Neurologic: Alert and oriented X 3, normal motor function, normal sensory function, no focal deficits noted. Psychologic: Affect normal, judgement normal, mood normal. Current Patient Data: Vital Signs: Vital Signs Date Time Temp Pulse Resp B/P (MAP) Pulse Ox O2 Delivery O2 Flow Rate FiO2 01/24/20 16:37 97.9 92 16 131/80 (97) 97 Room Air 97.9 EKG: EKG: [] Radiology/Procedures: Radiology/Procedures: [] Course & Med Decision Making: Course & Med Decision Making Pertinent Labs and Imaging studies reviewed. (See chart for details) 44-year-old patient was called by nursing staff and was told to return to the emergency department because the antibiotic that she is on did not cover the urinary tract infection specific organism. 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 Discussed this with patient, also recommended starting on a short run of Pyridium, and will give a additional prescription for Macrobid if by happenstance her UTI symptoms have not resolved within the next several days. Patient was given return to ER precautions and concerns, gave verbal understanding of discharge home instructions and prescriptions. Patient had no further questions or concerns. Patient discharged home. Dragon Disclaimer: Dragon Disclaimer: This electronic medical record was generated, in whole or in part, using a voice recognition dictation system. Departure Departure Impression: Primary Impression: UTI (lower urinary tract infection) Disposition: HOME, SELF-CARE Condition: GOOD Referrals: SOFIYA DALAL (PCP) Patient Instructions: Indwelling Urinary Catheter Care-Brief, Urinary Tract Infection Additional Instructions: Continue your current antibiotic regimen, fill the prescription for Pyridium and take as directed, you have been given an additional prescription for more antibiotic if needed, please discard if your symptoms resolve, see your doctor soon. Return to the emergency department for worsening symptoms or further concerns. Scripts Phenazopyridine Hcl (PYRIDIUM) 100 Mg Tablet 1 TAB PO TID for urinary discomfort for 3 Days, #9 TAB 0 Refills Prov: RUMA RUSSELL APRN 01/24/20 Nitrofurantoin Monohyd/M-Cryst (MACROBID 100 MG CAPSULE) 100 Mg Capsule 1 CAP PO BID for 7 Days, #14 CAP 0 Refills Prov: RUMA RUSSELL APRN 01/24/20 Justicifation of Admission Dx: Justifications for Admission: Justification of Admission Dx: N/A RUMA RUSSELL APRN Jan 24, 2020 19:02
== END 2020-01-24 19:08 | disposition home or self-care (01) ==
LOC: ER 16:24
DX: N39.0 Urinary tract infection, site not specified (principal); E78.00 Pure hypercholesterolemia, unspecified; G43.909 Migraine, unspecified, not intractable, without status migrainosus; Z87.442 Personal history of urinary calculi; Z90.710 Acquired absence of both cervix and uterus; Z98.890 Other specified postprocedural states; Z88.1 Allergy status to other antibiotic agents; Z88.8 Allergy status to other drugs, medicaments and biological substances
CPT/HCPCS: 99283